=== PATIENT | male | born 1985 | race Caucasian/White ===

== ENCOUNTER 2021-08-20 01:06 | Observation (INO) ==
[2021-08-20] MEDS ORDERED: Isovue-370 500 ML BOTTLE IVP ONE ×2 (01:09→02:52)
[2021-08-20 02:01] LABS: Hematocrit 38.1 % (37.5-50.1); Hemoglobin 13.4 g/dL (12.9-16.9); Mean Corpuscular HGB Conc 35.2 g/dL (31.6-35.5); Mean Corpuscular Hemoglobin 30.6 pg (28.0-33.3); Mean Platelet Volume 9.7 fL (9.4-12.4); Platelet Count 280 K/mcL (140-400); Red Blood Count 4.38 M/mcL (4.19-5.50); Red Cell Distribution Width 11.6 % (11.5-14.5); White Blood Count 11.3 K/mcL (4.3-11.1)
[2021-08-20 02:21] LABS: Blood Urea Nitrogen 11 mg/dL (6-20); Calcium 9.1 mg/dL (8.6-10.3); Carbon Dioxide 27 mEq/L (23-29); Chloride 101 mEq/L (98-107); Glucose 162 mg/dL (70-105); Osmolality,Calculated 287 (280-300); Sodium 137 mEq/L (136-145)
[2021-08-20 02:35] LABS: Troponin I 0.04 ng/mL (< 0.04)
[2021-08-20 03:17] LABS: BUN/Creatinine Ratio 10 (6-26); eGFR For African Americans > 60 (> 60); eGFR For Non-African Americans > 60 (> 60)
[2021-08-20 03:48] LABS: Ethanol < 10 mg/dL (Less than 10); Magnesium 1.8 mg/dL (1.6-2.6)
[2021-08-20] MEDS ORDERED: Gadolinium Contrast Agent (WT Based) IV PRN (04:03)
[2021-08-20 04:42] LABS: Bilirubin,Urine Negative (Negative); Blood,Urine Negative (Negative); Clarity,Urine Clear (Clear); Color,Urine Colorless (Yellow); Glucose,Urine (UA) Normal (Normal); Ketones,Urine Negative (Negative); Leukocyte Esterase,Urine Negative (Negative); Nitrite,Urine Negative (Negative); PH,Urine 6.5 pH Units (5.0-8.0); Protein,Urine Negative (Neg-Trace); Specific Gravity,Urine 1.029 (1.010-1.025); Urobilinogen,Urine Normal (Normal)
[2021-08-20 04:48] LABS: Amphetamine Screen,Urine Negative ng/mL (Cutoff=1000); Barbiturate Screen,Urine Negative ng/mL (Cutoff=200); Benzodiazepines Screen,Urine Negative ng/mL (Cutoff=200); Cannabinoid Screen,Urine Negative ng/mL (Cutoff = 50); Cocaine Screen,Urine Negative ng/mL (Cutoff= 300); Opiate Screen,Urine Negative ng/mL (Cutoff=300); Phencyclidine Screen,Urine Negative ng/mL (Cutoff=25)
[2021-08-20] MEDS ORDERED: Ondansetron 4 MG/2 ML VIAL IVP PRN (05:31)
[2021-08-20] MEDS ORDERED: Naloxone 0.4 MG/ML INJ IVP PRN (05:31)
[2021-08-20] MEDS ORDERED: Acetaminophen 325 MG TABLET PO PRN (05:31)
[2021-08-20] MEDS ORDERED: Perflutren Lipid Microsphere 1.3 ML in 0.9 % Sodium Chloride 8.7 ML IVP PRN (06:30)
[2021-08-20 06:56] LABS: Troponin I 0.06 ng/mL (< 0.04)
[2021-08-20 08:01] LABS: Troponin I 0.05 ng/mL (< 0.04)
[2021-08-20 08:09] LABS: Chol/HDL Ratio 3.7 (0-4.9); Magnesium 1.8 mg/dL (1.6-2.6)
[2021-08-20 08:21] LABS: Thyroid Stimulating Hormone 9.05 mcIU/mL (0.340-5.600)
[2021-08-20 08:31] LABS: Folate 12.6 ng/mL (3.0-16.0)
[2021-08-20] MEDS: Aspirin 81 MG TAB.CHEW PO SCH (08:57)
[2021-08-20 09:28] LABS: Estimated Average Glucose 146 mg/dl; Hemoglobin A1C 6.7 %
[2021-08-20] MEDS: Topiramate 25 MG CAP.SPRINK PO SCH ×2 (13:23→19:47)
[2021-08-21 05:41] LABS: Basophils # 0.1 K/mcL (0.0-0.2); Basophils % 0.9 %; Eosinophils # 0.2 K/mcL (0.0-0.6); Eosinophils % 1.5 %; Hematocrit 38.2 % (37.5-50.1); Hemoglobin 13.8 g/dL (12.9-16.9); Immature Granulocytes % 0.4 % (0-4); Lymphocytes # 3.4 K/mcL (0.6-4.6); Lymphocytes % 31.1 %; Mean Corpuscular HGB Conc 36.1 g/dL (31.6-35.5); Mean Corpuscular Hemoglobin 31.7 pg (28.0-33.3); Mean Corpuscular Volume 87.6 fL (83.0-100.0); Mean Platelet Volume 10.3 fL (9.4-12.4); Monocytes # 0.8 K/mcL (0.0-1.3); Monocytes % 7.2 %; Neutrophils # 6.5 K/mcL (1.6-8.9); Platelet Count 270 K/mcL (140-400); Red Blood Count 4.36 M/mcL (4.19-5.50); Red Cell Distribution Width 11.5 % (11.5-14.5); Segmented Neutrophils % 58.9 %
[2021-08-21 05:57] LABS: BUN/Creatinine Ratio 16 (6-26); Blood Urea Nitrogen 16 mg/dL (6-20); Calcium 9.2 mg/dL (8.6-10.3); Carbon Dioxide 25 mEq/L (23-29); Chloride 105 mEq/L (98-107); Glucose 118 mg/dL (70-105); Osmolality,Calculated 288 (280-300); Potassium 3.8 mEq/L (3.5-5.1); Sodium 138 mEq/L (136-145); eGFR For African Americans > 60 (> 60); eGFR For Non-African Americans > 60 (> 60)
[2021-08-21 06:46] VITALS: O2SAT 97
[2021-08-21] MEDS: Topiramate 25 MG CAP.SPRINK PO SCH (09:51)
[2021-08-21] MEDS: Aspirin 81 MG TAB.CHEW PO SCH (09:51)
[2021-08-21] MEDS ORDERED: Cyanocobalamin (B-12) 1,000 MCG TABLET PO SCH (10:00)
[2021-08-21 10:34] VITALS: BP 139/78; PULSE 96; TEMP 97.6
== END 2021-08-21 14:50 | disposition home or self-care (01) ==
LOC: EMEROOARM 01:06 → 3BNU 01:06
PROVIDERS: ADMIT Internal Medicine; ATTEND Internal Medicine